=== PATIENT | female | born 1955 | race Asian ===

== ENCOUNTER 2019-06-25 02:53 | Inpatient (IN) | payer MEDICARE, OTHER ==
[2019-06-25] MEDS: morphine 4 MG/ML VIAL IV (03:21)
[2019-06-25] MEDS: SOD CHLORIDE 0.9% 100 ML (05:45)
[2019-06-25] MEDS: IOHEXOL 300MG/ML 150 ML BTL (05:46)
[2019-06-25] MEDS ORDERED: ONDANSETRON 4 MG INJ IV ×2 (06:00→09:00)
[2019-06-25] MEDS ORDERED: ACETAMINOPHEN 325 MG TAB PO (06:00)
[2019-06-25] MEDS ORDERED: MAGNESIUM HYDROXIDE 30ML CUP PO (09:00)
[2019-06-25] MEDS ORDERED: INSULIN GLARGINE [LANtus] 3 ML PEN SC (09:00)
[2019-06-25] MEDS ORDERED: NACL 0.9% 3 ML SYG IV (09:00)
[2019-06-25] MEDS ORDERED: DOCUSATE SODIUM 100 MG CAP PO (09:00)
[2019-06-25] MEDS ORDERED: NITROGLYCERIN (SL) 0.4 MG TAB SL (09:00)
[2019-06-25] MEDS ORDERED: DEXTROSE 50% 50 ML SYRINGE IV ×2 (09:30)
[2019-06-25] MEDS ORDERED: GLUCOSE GEL 15 GRAM TUBE BUCCAL (09:30)
[2019-06-25] MEDS ORDERED: GLUCAGON 1 MG INJ IM (09:30)
[2019-06-25] MEDS ORDERED: GLUCOSE GEL 15 GRAM TUBE PO ×2 (09:30)
[2019-06-25] MEDS: PANTOPRAZOLE (EC) 40 MG TAB PO (09:50)
[2019-06-25] MEDS: ASPIRIN (EC) 81 MG TAB PO (09:51)
[2019-06-25] MEDS: LOSARTAN 50 MG TAB PO (09:52)
[2019-06-25] MEDS: GABAPENTIN 300 MG CAP PO ×2 (09:52→21:27)
[2019-06-25] MEDS: INSULIN GLARGINE [LANTus] (100 UNITS/ML) SYG SC ×2 (09:53→22:12)
[2019-06-25] MEDS: INSULIN ASPART [NOVOLOG] 3 ML PEN SC ×5 (13:15→22:25)
[2019-06-25] MEDS: FUROSEMIDE 20 MG INJ IV (18:23)
[2019-06-25] MEDS: ATORVASTATIN 40 MG TAB PO (21:27)
[2019-06-25] MEDS: HEPARIN 5,000 UNIT/1 ML VIAL SC (22:12)
[2019-06-25] MEDS: ACCU-CHEK XX (22:30)
[2019-06-26] MEDS: ACCUCHECK AT 2AM (Patients on SS coverage) XX (01:03)
[2019-06-26] MEDS: PANTOPRAZOLE (EC) 40 MG TAB PO (05:10)
[2019-06-26] MEDS: FUROSEMIDE 20 MG INJ IV ×2 (05:12→18:39)
[2019-06-26] MEDS: HEPARIN 5,000 UNIT/1 ML VIAL SC ×3 (05:27→21:41)
[2019-06-26] MEDS ORDERED: MIDAZOLAM 1 MG/ML 2 ML INJ (07:19)
[2019-06-26] MEDS ORDERED: VERAPAMIL 5 MG INJ (07:19)
[2019-06-26] MEDS ORDERED: FENTAnyl 50 MCG/ML VIAL (07:37)
[2019-06-26] MEDS ORDERED: TICAGRELOR 90 MG TABLET (07:54)
[2019-06-26] MEDS: INSULIN ASPART [NOVOLOG] 3 ML PEN SC ×4 (07:55→20:28)
[2019-06-26] MEDS ORDERED: BIVALIRUDIN 250MG /NS 50 ML 50 ML IVPB (08:29)
[2019-06-26] MEDS ORDERED: LIDOCAINE 1% (MDV) 20 ML INJ (08:29)
[2019-06-26] MEDS ORDERED: OXYCODONE/ACETAMINOPHEN (5/325) TAB PO (08:30)
[2019-06-26] MEDS ORDERED: IODIXANOL LOCM 100 ML BTL (08:30)
[2019-06-26] MEDS: BIVALIRUDIN 250 MG in SOD CHLORIDE 0.9% 500 ML IV (08:30)
[2019-06-26] MEDS ORDERED: ACETAMINOPHEN 325 MG TAB PO (08:30)
[2019-06-26] MEDS: INSULIN GLARGINE [LANTus] (100 UNITS/ML) SYG SC ×2 (09:00→20:29)
[2019-06-26] MEDS: GABAPENTIN 300 MG CAP PO ×2 (10:00→20:22)
[2019-06-26] MEDS: ASPIRIN (EC) 81 MG TAB PO (10:00)
[2019-06-26] MEDS: LOSARTAN 50 MG TAB PO (10:00)
[2019-06-26] MEDS: TICAGRELOR 90 MG TABLET PO ×2 (11:00→20:30)
[2019-06-26] MEDS: SOD CHLORIDE 0.9% 1,000 ML IV (11:16)
[2019-06-26] MEDS ORDERED: ATROPINE 1 MG/10 ML SYRINGE (14:11)
[2019-06-26] MEDS: ATORVASTATIN 40 MG TAB PO (20:21)
[2019-06-26] MEDS: morphine 2 MG INJ IV (20:43)
[2019-06-26] MEDS: ACETAMINOPHEN 325 MG TAB PO (23:20)
[2019-06-27] MEDS: ACCUCHECK AT 2AM (Patients on SS coverage) XX (01:57)
[2019-06-27] MEDS: HEPARIN 5,000 UNIT/1 ML VIAL SC ×3 (06:00→21:43)
[2019-06-27] MEDS: PANTOPRAZOLE (EC) 40 MG TAB PO (07:09)
[2019-06-27] MEDS: FUROSEMIDE 20 MG INJ IV ×2 (07:09→17:15)
[2019-06-27] MEDS: INSULIN ASPART [NOVOLOG] 3 ML PEN SC ×4 (07:51→21:00)
[2019-06-27] MEDS: INSULIN GLARGINE [LANTus] (100 UNITS/ML) SYG SC ×2 (07:59→18:02)
[2019-06-27] MEDS: GABAPENTIN 300 MG CAP PO ×2 (08:45→21:22)
[2019-06-27] MEDS: LOSARTAN 50 MG TAB PO (08:46)
[2019-06-27] MEDS: ASPIRIN (EC) 81 MG TAB PO (08:46)
[2019-06-27] MEDS: TICAGRELOR 90 MG TABLET PO ×2 (08:51→21:44)
[2019-06-27] MEDS ORDERED: INSULIN GLARGINE [LANTus] (100 UNITS/ML) SYG SC ×2 (17:30→21:00)
[2019-06-27] MEDS: ATORVASTATIN 40 MG TAB PO (21:22)
[2019-06-27] MEDS: morphine 2 MG INJ IV (23:33)
[2019-06-28] MEDS: ACCUCHECK AT 2AM (Patients on SS coverage) XX (01:11)
[2019-06-28] MEDS: PANTOPRAZOLE (EC) 40 MG TAB PO (05:59)
[2019-06-28] MEDS: FUROSEMIDE 20 MG INJ IV (06:00)
[2019-06-28] MEDS: INSULIN GLARGINE [LANTus] (100 UNITS/ML) SYG SC ×3 (06:32→21:55)
[2019-06-28] MEDS: HEPARIN 5,000 UNIT/1 ML VIAL SC ×3 (06:34→21:54)
[2019-06-28] MEDS ORDERED: INSULIN GLARGINE [LANTus] (100 UNITS/ML) SYG SC (08:00)
[2019-06-28] MEDS: INSULIN ASPART [NOVOLOG] 3 ML PEN SC ×4 (08:15→21:55)
[2019-06-28] MEDS: TICAGRELOR 90 MG TABLET PO ×2 (09:12→21:55)
[2019-06-28] MEDS: ASPIRIN (EC) 81 MG TAB PO (09:14)
[2019-06-28] MEDS: LOSARTAN 50 MG TAB PO (09:15)
[2019-06-28] MEDS: GABAPENTIN 300 MG CAP PO ×2 (09:15→21:10)
[2019-06-28] MEDS: ATORVASTATIN 40 MG TAB PO (21:10)
[2019-06-28] MEDS: morphine 2 MG INJ IV (21:11)
[2019-06-29] MEDS: ACCUCHECK AT 2AM (Patients on SS coverage) XX (02:16)
[2019-06-29] MEDS: PANTOPRAZOLE (EC) 40 MG TAB PO (06:01)
[2019-06-29] MEDS: HEPARIN 5,000 UNIT/1 ML VIAL SC ×2 (06:27→14:29)
[2019-06-29] MEDS: INSULIN ASPART [NOVOLOG] 3 ML PEN SC ×3 (07:52→17:31)
[2019-06-29] MEDS: GABAPENTIN 300 MG CAP PO (09:05)
[2019-06-29] MEDS: ASPIRIN (EC) 81 MG TAB PO (09:05)
[2019-06-29] MEDS: LOSARTAN 50 MG TAB PO (09:06)
[2019-06-29] MEDS: TICAGRELOR 90 MG TABLET PO (09:12)
[2019-06-29] MEDS: INSULIN GLARGINE [LANTus] (100 UNITS/ML) SYG SC (09:13)
[2019-06-29] MEDS: metFORMIN 500 MG TAB PO (18:13)
[2019-06-30] MEDS ORDERED: glipiZIDE (XL) 5 MG TAB PO (09:00)
== END 2019-06-29 19:07 | disposition home health service (06) | DRG 247 ==
LOC: E/R 02:53 → ICU 06-26 10:00 → 6WM 06-26 23:32 → TEL 05:53
PROC: 027034Z Dilation of Coronary Artery, One Artery with Drug-eluting Intraluminal Device, Percutaneous Approach (ICD-10-PCS; principal; 2019-06-26 07:08)
PROC: B240ZZ3 Ultrasonography of Single Coronary Artery, Intravascular (ICD-10-PCS; 2019-06-26 07:08)
PROC: 4A023N7 Measurement of Cardiac Sampling and Pressure, Left Heart, Percutaneous Approach (ICD-10-PCS; 2019-06-26 07:08)
PROC: B211YZZ Fluoroscopy of Multiple Coronary Arteries using Other Contrast (ICD-10-PCS; 2019-06-26 07:08)
DX: I25.110 Atherosclerotic heart disease of native coronary artery with unstable angina pectoris (principal); N17.9 Acute kidney failure, unspecified; I50.22 Chronic systolic (congestive) heart failure; I11.0 Hypertensive heart disease with heart failure; E11.8 Type 2 diabetes mellitus with unspecified complications; I44.7 Left bundle-branch block, unspecified; E78.5 Hyperlipidemia, unspecified; I25.5 Ischemic cardiomyopathy; D50.9 Iron deficiency anemia, unspecified; Z79.4 Long term (current) use of insulin
CPT/HCPCS: 36415; 71045; 71275; 80048; 80053; 80061; 80076; 82550; 82553; 82728; 82947; 82962; 83036; 83540; 83735; 83880; 84439; 84443; 84484; 85025; 85610; 92978; 93005; 93306; 93458; 93926; 96374; 97110; 97116; 97161; 97167; 97530; 97535; 99217; 99285-25; G0378; J0583